=== PATIENT | male | born 1975 | race Caucasian/White ===

== ENCOUNTER 2017-01-18 00:47 | Inpatient (IN) | payer OTHER ==
[2017-01-18] VITALS (7 sets, daily range): BP systolic 103–109; BP diastolic 58–69; PULSE 59–74; RESP 18–19; TEMP 98; Ht 177.8 cm; Wt 72.4 kg
[~2017-01-18] VITALS: Ht 177.8 cm; Wt 72.4 kg
[2017-01-18] MEDS ORDERED: NITROGLYCERIN 2% 1 GM OINT PKT TD STA (00:52)
[2017-01-18] MEDS ORDERED: morphine 4 MG/ML VIAL IV STA (00:52)
[2017-01-18] MEDS ORDERED: ONDANSETRON 4 MG INJ IV STA (00:52)
[2017-01-18 01:11] LABS: BASOPHIL # 0.1 10^3/ul (0.0-0.1); BASOPHILS % 0.7 % (0.0-2.0); EOSINOPHILS # 0.3 10^3/ul (0.0-0.5); EOSINOPHILS % 3.5 % (0.0-7.0); HEMATOCRIT 45.6 % (42.0-52.0); HEMOGLOBIN 15.2 g/dl (14.0-18.0); LYMPHOCYTES # 2.4 10^3/ul (0.8-2.9); LYMPHOCYTES % 31.8 % (15.0-51.0); MEAN CORPUSCULAR HEMOGLOBIN 28.5 pg (29.0-33.0); MEAN CORPUSCULAR HGB CONC 33.3 g/dl (32.0-37.0); MEAN CORPUSCULAR VOLUME 85.6 fl (82.0-101.0); MEAN PLATELET VOLUME 10.9 fl (7.4-10.4); MONOCYTE # 0.8 10^3/ul (0.3-0.9); MONOCYTES % 10.4 % (0.0-11.0); NEUTROPHILS % 53.2 % (39.0-77.0); PLATELET COUNT 203 10^3/UL (140-415); RED BLOOD COUNT 5.33 10^6/ul (4.70-6.10); RED CELL DISTRIBUTION WIDTH 12.7 % (11.5-14.5); WHITE BLOOD COUNT 7.4 10^3/ul (4.8-10.8)
[2017-01-18 01:28] LABS: ALANINE AMINOTRANSFERASE 42 IU/L (13-69); ALBUMIN 4.5 g/dl (3.3-4.9); ALBUMIN/GLOBULIN RATIO 1.32; ALKALINE PHOSPHATASE 100 IU/L (42-121); ANION GAP 19 (8-16); ASPARTATE AMINO TRANSFERASE 28 IU/L (15-46); BILIRUBIN,INDIRECT 0.2 mg/dl (0-1.1); BILIRUBIN,TOTAL 0.2 mg/dl (0.2-1.3); BLOOD UREA NITROGEN 21 mg/dl (7-20); CALCIUM 9.7 mg/dl (8.4-10.2); CARBON DIOXIDE 29 mmol/L (21-31); CHLORIDE 99 mmol/L (97-110); CREATININE 0.99 mg/dl (0.61-1.24); GLUCOSE 108 mg/dl (70-220); POTASSIUM 3.7 mmol/L (3.5-5.1); SODIUM 143 mmol/L (135-144); TOTAL PROTEIN 7.9 g/dl (6.1-8.1)
[2017-01-18 01:39] LABS: B-TYPE NATRIURETIC PEPTIDE 55 PG/ML (0-125); TROPONIN-I < 0.012 ng/ml (0.00-0.12)
--- NOTE | 2017-01-18 01:53 | RADRPT ---
PROCEDURE: XR Chest. CLINICAL INDICATION: Chest pain. TECHNIQUE: Single frontal view of the chest. COMPARISON: None. FINDINGS: The cardiomediastinal silhouette is within normal limits. The lungs are clear. No signs of pleural f luid or pneumothorax are seen. The osseous structures and soft tissues are unremarkable. IMPRESSION: No evidence for active cardiopulmonary disease. RPTAT: [facility] Physician Joy Date Time Electronically viewed and signed by Physician Joy on 01/18/2017 01:53 RS/
[2017-01-18] MEDS ORDERED: TRAZ100T15 PO (03:01)
[2017-01-18] MEDS ORDERED: MULTI PO (03:01)
--- NOTE | 2017-01-18 03:43 | ERA ---
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 Field EKG showed ST segment elevation FL. Upon arrival EKG with EKG was reviewed and deemed not to be a STEMI. Repeat EKG here showed normal sinus rhythm. Chest pain is sharp substernal nonexertional positional no exacerbating or alleviating factors. Given aspirin and nitroglycerin on arrival. Mild relief with above medications. Family history positive for hypercholesterolemia otherwise negative. ROS All systems reviewed and are negative except as per history of present illness. Medications Home Meds Reported Medications Multivitamins* (Theragran*) 1 Tab Tab, 1 TAB PO DAILY, TAB 01/18/17 Trazodone Hcl* (Trazodone Hcl*) 100 Mg Tablet, 100 MG PO QHS, #30 TAB 01/18/17 Allergies Allergies: Coded Allergies: No Known Allergy (Unverified , 01/18/17) PMhx/Soc Medical and Surgical Hx: pt denies Surgical Hx Hx Miscellaneous Medical Probl: No (insomia- work related) Hx Alcohol Use: No Hx Substance Use: No Hx Tobacco Use: No Smoking Status: Never smoker Physical Exam Vitals Vital Signs Date Time Temp Pulse Resp B/P Pulse Ox O2 Delivery O2 Flow Rate FiO2 01/18/17 02:38 97.1 66 18 129/81 100 Room Air 01/18/17 00:49 97.1 63 18 134/74 100 Physical Exam Const: [] Head: Atraumatic Eyes: Normal Conjunctiva ENT: Normal External Ears, Nose and Mouth. Neck: Full range of motion..~ No meningismus. Resp: Clear to auscultation bilaterally Cardio: Regular rate and rhythm, no murmurs Abd: Soft, non tender, non distended. Normal bowel sounds Skin: No petechiae or rashes Back: No midline or flank tenderness Ext: No cyanosis, or edema Neur: Awake and alert Psych: Normal Mood and Affect Result Diagram: 01/18/17 0045 01/18/17 0045 Results 24 hrs Laboratory Tests Test 01/18/17 00:45 White Blood Count 7.410^3/ul Red Blood Count 5.3310^6/ul Hemoglobin 15.2g/dl Hematocrit 45.6% Mean Corpuscular Volume 85.6fl Mean Corpuscular Hemoglobin 28.5pg Mean Corpuscular Hemoglobin Concent 33.3g/dl Red Cell Distribution Width 12.7% Platelet Count 52254^3/UL Mean Platelet Volume 10.9fl Neutrophils % 53.2% Lymphocytes % 31.8% Monocytes % 10.4% Eosinophils % 3.5% Basophils % 0.7% Nucleated Red Blood Cells % 0.0/100WBC Neutrophils # (Manual) 4.010^3/ul Lymphocytes # 2.410^3/ul Monocytes # 0.810^3/ul Eosinophils # 0.310^3/ul Basophils # 0.110^3/ul Nucleated Red Blood Cells # 0.010^3/ul Sodium Level 143mmol/L Potassium Level 3.7mmol/L Chloride Level 99mmol/L Carbon Dioxide Level 29mmol/L Anion Gap 19 Blood Urea Nitrogen 21mg/dl Creatinine 0.99mg/dl Glucose Level 108mg/dl Calcium Level 9.7mg/dl Total Bilirubin 0.2mg/dl Direct Bilirubin 0.00mg/dl Indirect Bilirubin 0.2mg/dl Aspartate Amino Transf (AST/SGOT) 28IU/L Alanine Aminotransferase (ALT/SGPT) 42IU/L Alkaline Phosphatase 100IU/L Troponin I < 0.012ng/ml B-Type Natriuretic Peptide 55PG/ML Total Protein 7.9g/dl Albumin 4.5g/dl Globulin 3.40g/dl Albumin/Globulin Ratio 1.32 Current Medications Medications (Trade) Dose Ordered Sig/Jb Route PRN Reason Start Time Stop Time Status Last Admin Dose Admin Nitroglycerin (Nitroglycerin 2% Oint) 1 inch ONCE STAT TD 01/18/17 00:52 01/18/17 00:53 DC 01/18/17 01:21 Morphine Sulfate (morphine) 4 mg ONCE STAT IV 01/18/17 00:52 01/18/17 00:53 DC 01/18/17 01:20 Ondansetron HCl (Zofran Inj) 4 mg ONCE STAT IV 01/18/17 00:52 01/18/17 00:53 DC 01/18/17 01:20 Procedures/[facility] EKG: Rate/Rhythm: Normal Sinus Rhythm QRS, ST, T-waves: No changes consistent w/ acute ischemia Impression: No evidence of ischemia or arrhythmia Chest X-ray 1V Interpreted by me: Soft Tissue: No acute abnormalities Bones: No acute abnormalities Mediastinum/Cardiac Silhouette/Lungs: No acute abnormalities Patient's symptoms are concerning for cardiac cause will require inpatient workup and continuous monitoring. Further w/u for ischemia, arrhythmia, PE or dissection will be deferred to the inpatient team. Accepting Care Team: Current data and ongoing care discussed. Time: 3:30 AM Primary Provider: Hospitalist Consulting: [XOXOXO] Outstanding Data: none Departure Diagnosis: Primary Impression: Chest pain Qualified Code: I20.0 - Unstable angina pectoris Condition: Serious CHELY FUNEZ Jan 18, 2017 03:43
[2017-01-18] MEDS ORDERED: morphine 2 MG INJ IV ONE (08:30)
[2017-01-18] MEDS ORDERED: ALBUTEROL/IPRATROPIUM (NEB) 3 ML AMP HHN PRN (09:00)
[2017-01-18] MEDS ORDERED: morphine 2 MG INJ IV PRN (09:00)
[2017-01-18] MEDS ORDERED: NACL 0.9% 3 ML SYG IV SCH (09:00)
[2017-01-18] MEDS ORDERED: ONDANSETRON 4 MG INJ IV PRN (09:00)
[2017-01-18] MEDS ORDERED: NITROGLYCERIN (SL) 0.4 MG TAB SL PRN (09:00)
[2017-01-18] MEDS ORDERED: ACETAMINOPHEN 325 MG TAB PO PRN (09:00)
[2017-01-18] MEDS: ENOXAPARIN 40 MG/0.4 ML SYG SC SCH (09:44)
[2017-01-18] MEDS: ASPIRIN 81 MG TAB PO SCH (09:44)
[2017-01-18 10:05] LABS: CREATINE KINASE 59 IU/L (23-200)
[2017-01-18 10:19] LABS: CK-MB 0.36 ng/ml (0.0-2.4); TROPONIN-I < 0.012 ng/ml (0.00-0.12)
--- NOTE | 2017-01-18 12:02 | CONS ---
DATE OF ADMISSION: 01/18/2017 DATE OF CONSULTATION: 01/18/2017 REASON FOR CONSULTATION: Precordial chest pain. 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 The patient stated that he had an episode which felt like indigestion yesterday, but while he was at the fire station. The patient said that he has not had symptoms like this before. He said that he had access to an EKG machine. He did an EKG and the EKG showed that the patient has "ST elevation myocardial infarction". When I asked the patient about his EKG and if he read it himself or he just interpreted the interpretation of the rhythm strip on the top, he said he looked at the EKG and it looked like it had some depressions. The patient was transferred to the emergency room for further medical evaluation and management. I reviewed the patient's EKG carefully and it appears that he had some nonspecific STT changes with sinus bradycardia in the range of 50s. This is more consistent with normal EKG versus pericarditis; however, at the present time given the patient's high risk occupation and some risk factors such as recent stress, I would consider restratification with a stress test while the patient is here in the hospital. The patient agrees to proceed with stress test as indicated. PAST MEDICAL HISTORY: The patient reports history of anxiety due to recent stressors in his family situation but no other reports. MEDICATION: Trazodone. FAMILY HISTORY: Negative for sudden cardiac or premature coronary artery disease. ALLERGIES: NO KNOWN DRUG ALLERGIES. SOCIAL HISTORY: The patient never smoked, does not use any drugs. The patient is and he has some recent issues with his ex , as well as his ex girlfriend who carries his 5 month old child. REVIEW OF SYSTEMS: GENERAL: No fevers, no chills. RESPIRATORY: No shortness of breath. GASTROINTESTINAL: No nausea or vomiting. Indigestion as described. CARDIOVASCULAR: Chest pain as above. GENITOURINARY: No hematuria. NEUROLOGIC: Cooperative. PSYCHIATRIC: History of anxiety. PHYSICAL EXAMINATION: VITAL SIGNS: Bradycardia in the 50s, blood pressure 121/65. GENERAL APPEARANCE: A gentleman in no acute distress, alert and oriented x3. NECK: Supple, JVD 17 cm. There is no lymphadenopathy, no thyromegaly. HEART: Regular, soft 1/6 systolic murmur. PMI is not displaced. There is no S3 or S4. LUNGS: Clear at the bases. ABDOMEN: Distended, bowel sounds are present. There is no hepatosplenomegaly. GENITOURINARY: Grossly intact. EXTREMITIES: No cyanosis, clubbing or edema. SKIN: No bruising. NEUROLOGIC: He is able to move his extremities. LABORATORY: Troponin is negative at 0.01. IMPRESSION AND PLAN: 1. Chest pain. The patient's precordial chest pain is not consistent with acute ischemic event; however, anxiety versus gastroesophageal reflux disease for differential. Because the patient has high risk it is reasonable to proceed with stress test for restratification further. The patient will also have a 2-D echo to rule out pericardial effusion. 2. Abnormal EKG. The patient with bradycardia. 3. Anxiety. The patient takes Trazodone at home to sleep. Will continue to monitor now. 4. Abnormal EKG with some nonspecific STT changes. I would like to thank Rodri Lopez MD for referring this patient for evaluation. Dictated By: Phill Galarza MD /alex/belinda /Document#: [id number]
--- NOTE | 2017-01-18 15:50 | PN ---
Date/Time of Note Date/Time of Note DATE: 01/18/17 TIME: 15:50 Assessment/Plan VTE Prophylaxis VTE Prophylaxis Intervention: SCD's Lines/Catheters IV Catheter Type (from Nrsg): Saline Lock Assessment/Plan Chief Complaint/Hosp Course Assessment and plan 1. Chest pain. Employment Adjudicator following. Follow-up on 2D echocardiogram. Tentative plan for stress test. Will follow up. 2. Abnormal EKG. Monitor on telemetry. 3. Anxiety. Continue anxiolytics as needed Disposition and plan: Tentative plan for stress test. Will follow up Discussed plan of care with Problems: Subjective 24 Hr Interval Summary Free Text/Dictation No reports of chest pain at this time. Exam/Review of Systems Vital Signs Vitals Vital Signs Date Time Temp Pulse Resp B/P Pulse Ox O2 Delivery O2 Flow Rate FiO2 01/18/17 15:01 74 01/18/17 14:48 97.6 18 103/58 96 01/18/17 14:23 Nasal Cannula 2.0 Exam Constitutional: alert, oriented Psych: nl mood/affect Head: normocephalic Eyes: nl conjunctiva Neck: supple, No jvd Respiratory: clear to auscultation, normal air movement Cardiovascular: regular rate and rhythm Gastrointestinal: non-tender, soft Musculoskeletal: nl extremities to inspection Neurological: PERFORMANCE SPECIALIST II-XII intact, nl mental status, nl speech Results Result Diagram: 01/18/17 0045 01/18/175 Results 24 hrs Laboratory Tests Test 01/18/17 00:45 01/18/17 09:00 White Blood Count 7.4 Red Blood Count 5.33 Hemoglobin 15.2 Hematocrit 45.6 Mean Corpuscular Volume 85.6 Mean Corpuscular Hemoglobin 28.5 L Mean Corpuscular Hemoglobin Concent 33.3 Red Cell Distribution Width 12.7 Platelet Count 203 Mean Platelet Volume 10.9 H Neutrophils % 53.2 Lymphocytes % 31.8 Monocytes % 10.4 Eosinophils % 3.5 Basophils % 0.7 Nucleated Red Blood Cells % 0.0 Neutrophils # (Manual) 4.0 Lymphocytes # 2.4 Monocytes # 0.8 Eosinophils # 0.3 Basophils # 0.1 Nucleated Red Blood Cells # 0.0 Sodium Level 143 Potassium Level 3.7 Chloride Level 99 Carbon Dioxide Level 29 Anion Gap 19 H Blood Urea Nitrogen 21 H Creatinine 0.99 Glucose Level 108 Calcium Level 9.7 Total Bilirubin 0.2 Direct Bilirubin 0.00 Indirect Bilirubin 0.2 Aspartate Amino Transf (AST/SGOT) 28 Alanine Aminotransferase (ALT/SGPT) 42 Alkaline Phosphatase 100 Troponin I < 0.012 < 0.012 B-Type Natriuretic Peptide 55 Total Protein 7.9 Albumin 4.5 Globulin 3.40 H Albumin/Globulin Ratio 1.32 Creatine Kinase 59 Creatine Kinase Index 0.6 Creatinine Kinase MB (Mass) 0.36 Medications Medications Current Medications Ondansetron HCl (Zofran Inj) 4 mg Q6H PRN IV NAUSEA AND/OR VOMITING; Start at 09:00 Aspirin (Aspirin) 81 mg DAILY PO Last administered on 01/18/17 09:44; Admin Dose 81 MG; Start 01/18/17 at 09:00 Nitroglycerin (Nitroglycerin (Sl Tab) 0.4 Mg) 1 tab Q5M PRN SL CHEST PAIN Last administered on 01/18/17 12:08; Admin Dose 1 TAB; Start 01/18/17 at 09:00 Acetaminophen (Tylenol Tab) 650 mg Q6H PRN PO PAIN LEVEL 1-3 OR FEVER Last administered on 01/18/17 12:33; Admin Dose 650 MG; Start 01/18/17 at 09:00 Morphine Sulfate (morphine) 2 mg Q4H PRN IV PAIN LEVEL 7-10; Start 01/18/17 at 09:00 Enoxaparin Sodium (Lovenox) 40 mg DAILY SC Last administered on 01/18/17 09:44 ; Admin Dose 40 MG; Start 01/18/17 at 09:00 RADHA MORILLO Jan 18, 2017 15:50
[2017-01-18 16:09] LABS: CREATINE KINASE 68 IU/L (23-200)
[2017-01-18 16:22] LABS: CK-MB 0.28 ng/ml (0.0-2.4); TROPONIN-I < 0.012 ng/ml (0.00-0.12)
[2017-01-19] VITALS (13 sets, daily range): BP systolic 103–116; BP diastolic 58–74; PULSE 45–76; RESP 18–20
[2017-01-19 07:16] LABS: BASOPHILS % 0.6 % (0.0-2.0); EOSINOPHILS # 0.2 10^3/ul (0.0-0.5); EOSINOPHILS % 3.6 % (0.0-7.0); HEMATOCRIT 48.4 % (42.0-52.0); LYMPHOCYTES # 1.7 10^3/ul (0.8-2.9); LYMPHOCYTES % 25.2 % (15.0-51.0); MEAN CORPUSCULAR HEMOGLOBIN 28.4 pg (29.0-33.0); MEAN CORPUSCULAR HGB CONC 33.1 g/dl (32.0-37.0); MEAN PLATELET VOLUME 10.8 fl (7.4-10.4); MONOCYTE # 0.6 10^3/ul (0.3-0.9); MONOCYTES % 9.1 % (0.0-11.0); NEUTROPHILS % 60.9 % (39.0-77.0); PLATELET COUNT 195 10^3/UL (140-415); RED BLOOD COUNT 5.63 10^6/ul (4.70-6.10); RED CELL DISTRIBUTION WIDTH 12.6 % (11.5-14.5); WHITE BLOOD COUNT 6.6 10^3/ul (4.8-10.8)
[2017-01-19 07:45] LABS: ALBUMIN/GLOBULIN RATIO 1.25; BILIRUBIN,INDIRECT 0.4 mg/dl (0-1.1); BILIRUBIN,TOTAL 0.4 mg/dl (0.2-1.3); CALCIUM 8.9 mg/dl (8.4-10.2); CHOL/HDL RATIO 2.5 RATIO; CREATININE 1.03 mg/dl (0.61-1.24); POTASSIUM 4.4 mmol/L (3.5-5.1); TOTAL PROTEIN 7.2 g/dl (6.1-8.1)
[2017-01-19 08:14] LABS: THYROID STIMULATING HORMONE 0.941 MIU/L (0.465-4.680)
[2017-01-19] MEDS: ENOXAPARIN 40 MG/0.4 ML SYG SC SCH (09:00)
[2017-01-19] MEDS: ASPIRIN 81 MG TAB PO SCH (09:00)
--- NOTE | 2017-01-19 13:37 | PDOCDIS ---
Discharge Instructions DIAGNOSIS Discharge Diagnosis 1. Chest pain, non-cardiac (atypical) 2. reported Abnormal EKG. CONDITION Patient Condition: Stable HOME CARE INSTRUCTIONS: Diet Instructions: Regular FOLLOW UP/APPOINTMENTS Follow-up Plan 1. Follow up with your primary care provider in one week OTHER ORDERS: Other Orders: For further questions concerning cardiac care, please contact: Dr. Gopal Parikh Office Address [address] [place] [id number] Office RADHA MORILLO Jan 19, 2017 13:37
--- NOTE | 2017-01-19 14:40 | CONS ---
Date/Time of Note Date/Time of Note DATE: 01/19/17 TIME: 14:34 Assessment/Plan Assessment/Plan Chief Complaint/Hosp Course IMP 1.Chest pain-negative trop x 3 2. abnl ecg 3.Dyslipidemia Recc: -Tele -serial ecg's -will f/u echo -contnue asa -lexiscan stress today and if negatve then ok for d/c from cardiac standpoint Problems: Consultation Date/Type/Reason Admit Date/Time Jan 18, 2017 at 03:42 Initial Consult Date 01/18/17 Type of Consultation: cardiology Reason for Consultation chest pain Referring Provider: RADHA DHILLON Exam/Review of Systems Vital Signs Vitals Vital Signs Date Time Temp Pulse Resp B/P Pulse Ox O2 Delivery O2 Flow Rate FiO2 01/19/17 12:20 68 01/19/17 12:00 98.2 18 108/67 98 01/18/17 14:23 Nasal Cannula 2.0 Intake and Output 01/18/17 01/18/17 01/19/17 15:00 23:00 07:00 Intake Total 240 ml 150 ml Balance 240 ml 150 ml Exam Review of Systems: CONSTITUTIONAL: No fevers, chills. PULMONARY: No sob CARDIOVASCULAR: No chest pain/palpitations GASTROINTESTINAL: No nausea/vomiting. GENITOURINARY: No hematuria/dysuria. MUSCULOSKELETAL: No myagias/arthalgias. PSYCHIATRIC: The patient denies depression. NEUROLOGIC: No weakness Constitutional: alert Psych: no complaints Head: normocephalic ENMT: mucosa pink and moist Neck: jvd (8-9cm water), supple Respiratory: diminished breath sounds Cardiovascular: regular rate and rhythm Gastrointestinal: non-tender, soft Musculoskeletal: muscle tone (normal) Extremities: edema (none) Neurological: other (No focal deficits) Results Result Diagram: 01/19/17 0654 01/19/17 0654 Results 24 hrs Laboratory Tests Test 01/18/17 15:00 01/19/17 06:54 Creatine Kinase 68 Creatine Kinase Index 0.4 Creatinine Kinase MB (Mass) 0.28 Troponin I < 0.012 White Blood Count 6.6 Red Blood Count 5.63 Hemoglobin 16.0 Hematocrit 48.4 Mean Corpuscular Volume 86.0 Mean Corpuscular Hemoglobin 28.4 L Mean Corpuscular Hemoglobin Concent 33.1 Red Cell Distribution Width 12.6 Platelet Count 195 Mean Platelet Volume 10.8 H Neutrophils % 60.9 Lymphocytes % 25.2 Monocytes % 9.1 Eosinophils % 3.6 Basophils % 0.6 Nucleated Red Blood Cells % 0.0 Neutrophils # (Manual) 4.0 Lymphocytes # 1.7 Monocytes # 0.6 Eosinophils # 0.2 Basophils # 0.0 Nucleated Red Blood Cells # 0.0 Sodium Level 141 Potassium Level 4.4 Chloride Level 100 Carbon Dioxide Level 30 Anion Gap 15 Blood Urea Nitrogen 18 Creatinine 1.03 Glucose Level 92 Hemoglobin A1c 5.2 Calcium Level 8.9 Total Bilirubin 0.4 Direct Bilirubin 0.00 Indirect Bilirubin 0.4 Aspartate Amino Transf (AST/SGOT) 30 Alanine Aminotransferase (ALT/SGPT) 48 Alkaline Phosphatase 85 Total Protein 7.2 Albumin 4.0 Globulin 3.20 Albumin/Globulin Ratio 1.25 Triglycerides Level 69 Cholesterol Level 180 LDL Cholesterol, Calculated 94 HDL Cholesterol 72 H Cholesterol/HDL Ratio 2.5 Thyroid Stimulating Hormone (TSH) 0.941 Medications Medications Current Medications Ondansetron HCl (Zofran Inj) 4 mg Q6H PRN IV NAUSEA AND/OR VOMITING; Start at 09:00 Aspirin (Aspirin) 81 mg DAILY PO Last administered on 01/18/17 09:44; Admin Dose 81 MG; Start 01/18/17 at 09:00 Nitroglycerin (Nitroglycerin (Sl Tab) 0.4 Mg) 1 tab Q5M PRN SL CHEST PAIN Last administered on 01/18/17 12:08; Admin Dose 1 TAB; Start 01/18/17 at 09:00 Acetaminophen (Tylenol Tab) 650 mg Q6H PRN PO PAIN LEVEL 1-3 OR FEVER Last administered on 01/18/17 12:33; Admin Dose 650 MG; Start 01/18/17 at 09:00 Morphine Sulfate (morphine) 2 mg Q4H PRN IV PAIN LEVEL 7-10 Last administered on 01/18/17 18:55; Admin Dose 2 MG; Start 01/18/17 at 09:00 Enoxaparin Sodium (Lovenox) 40 mg DAILY SC Last administered on 01/18/17 09:44 ; Admin Dose 40 MG; Start 01/18/17 at 09:00 STEW GILBERT Jan 19, 2017 14:40
--- NOTE | 2017-01-19 18:10 | PN ---
Date/Time of Note Date/Time of Note DATE: 01/19/17 TIME: 18:08 Assessment/Plan VTE Prophylaxis VTE Prophylaxis Intervention: SCD's Lines/Catheters IV Catheter Type (from Nrsg): Saline Lock Assessment/Plan Chief Complaint/Hosp Course Assessment and plan 1. Chest pain. Design Tech following. patient had stress test today. still awaiting results . 2. Abnormal EKG. Monitor on telemetry. Stable at present 3. suspect Anxiety. Continue anxiolytics as needed Disposition and plan: awaiting stress test results. continue telemetry monitoring. anticipate discharge within the next 24 hours if medically stable and cleared by consultants Discussed plan of care with Problems: Subjective 24 Hr Interval Summary Free Text/Dictation denies any chest pain or shortness of breath. appears in good spirits Exam/Review of Systems Vital Signs Vitals Vital Signs Date Time Temp Pulse Resp B/P Pulse Ox O2 Delivery O2 Flow Rate FiO2 01/19/17 16:22 75 01/19/17 16:17 98.4 18 116/74 98 01/18/17 14:23 Nasal Cannula 2.0 Intake and Output 01/18/17 01/18/17 01/19/17 15:00 23:00 07:00 Intake Total 240 ml 150 ml Balance 240 ml 150 ml Exam Constitutional: alert, oriented Psych: nl mood/affect Head: normocephalic Eyes: nl conjunctiva Neck: non-tender Respiratory: clear to auscultation, normal air movement Cardiovascular: regular rate and rhythm Gastrointestinal: non-tender, soft Musculoskeletal: nl extremities to inspection Extremities: normal pulses Neurological: MOLDER BENCH II-XII intact, nl mental status, nl speech Skin: nl turgor Results Result Diagram: 01/19/17 0654 01/19/17 0654 Results 24 hrs Laboratory Tests Test 01/19/17 06:54 White Blood Count 6.6 Red Blood Count 5.63 Hemoglobin 16.0 Hematocrit 48.4 Mean Corpuscular Volume 86.0 Mean Corpuscular Hemoglobin 28.4 L Mean Corpuscular Hemoglobin Concent 33.1 Red Cell Distribution Width 12.6 Platelet Count 195 Mean Platelet Volume 10.8 H Neutrophils % 60.9 Lymphocytes % 25.2 Monocytes % 9.1 Eosinophils % 3.6 Basophils % 0.6 Nucleated Red Blood Cells % 0.0 Neutrophils # (Manual) 4.0 Lymphocytes # 1.7 Monocytes # 0.6 Eosinophils # 0.2 Basophils # 0.0 Nucleated Red Blood Cells # 0.0 Sodium Level 141 Potassium Level 4.4 Chloride Level 100 Carbon Dioxide Level 30 Anion Gap 15 Blood Urea Nitrogen 18 Creatinine 1.03 Glucose Level 92 Hemoglobin A1c 5.2 Calcium Level 8.9 Total Bilirubin 0.4 Direct Bilirubin 0.00 Indirect Bilirubin 0.4 Aspartate Amino Transf (AST/SGOT) 30 Alanine Aminotransferase (ALT/SGPT) 48 Alkaline Phosphatase 85 Total Protein 7.2 Albumin 4.0 Globulin 3.20 Albumin/Globulin Ratio 1.25 Triglycerides Level 69 Cholesterol Level 180 LDL Cholesterol, Calculated 94 HDL Cholesterol 72 H Cholesterol/HDL Ratio 2.5 Thyroid Stimulating Hormone (TSH) 0.941 Medications Medications Current Medications Ondansetron HCl (Zofran Inj) 4 mg Q6H PRN IV NAUSEA AND/OR VOMITING; Start at 09:00 Aspirin (Aspirin) 81 mg DAILY PO Last administered on 01/18/17 09:44; Admin Dose 81 MG; Start 01/18/17 at 09:00 Nitroglycerin (Nitroglycerin (Sl Tab) 0.4 Mg) 1 tab Q5M PRN SL CHEST PAIN Last administered on 01/18/17 12:08; Admin Dose 1 TAB; Start 01/18/17 at 09:00 Acetaminophen (Tylenol Tab) 650 mg Q6H PRN PO PAIN LEVEL 1-3 OR FEVER Last administered on 01/18/17 12:33; Admin Dose 650 MG; Start 01/18/17 at 09:00 Morphine Sulfate (morphine) 2 mg Q4H PRN IV PAIN LEVEL 7-10 Last administered on 01/18/17 18:55; Admin Dose 2 MG; Start 01/18/17 at 09:00 Enoxaparin Sodium (Lovenox) 40 mg DAILY SC Last administered on 01/18/17 09:44 ; Admin Dose 40 MG; Start 01/18/17 at 09:00 RADHA MORILLO Jan 19, 2017 18:10
--- NOTE | 2017-01-19 18:27 | RADRPT ---
Echocardiogram Report Patient Name: KENDRICK PATE Gender: Male Date: 1975 Study Date: 18-Jan-2017 Leader Tier: Klaudia [facility] Location: [facility] Ref. Physician: CHELY PURVIS Quality: Technically Difficult Study Procedures: Transthoracic echocardiogram with complete 2D, M-Mode, and doppler examination. Indications: Chest Pain. 2D/M Mode Doppler Measurement Value Normal Ranges Measurement Value Normal Ranges LVIDd 2D 4.6 3.5 - 5.6 cm AV Peak Kevin 1.1 m/sec LVIDs 2D 3.0 2.1 - 4.1 cm AV Peak PG 5.0 mmHg FS 2D 35.5 % LVOT Peak Kevin 1.0 m/sec LVPWd 2D 1.0 0.6 - 1.1 cm LVOT Peak PG 4.0 mmHg IVSd 2D 1.0 0.6 - 1.1 cm MV E Peak Kevin 0.9 m/sec IVS/LVPW 2D 1.0 MV A Peak Kevin 0.5 m/sec AoR Diam 2D 2.2 2.0 - 3.7 cm MV E/A 1.9 LA/Ao 2D 1 0 - 1 MV Decel Time 187 msec EDV 2D 98.6 cm3 MV E/A 1.9 ESV 2D 26.5 cm3 TR Peak Kevin 2.5 m/sec LA Dimen 2D 2.9 2.3 - 4.0 cm TR Peak PG 24.0 mmHg RVSP 32.0 mmHg Findings Left Ventricle: Normal left ventricular systolic function. Normal left ventricular cavity size. Normal left ventricular wall thickness. Ejection fraction is visually estimated at 60 %. Abnormal Diastolic Function. Right Ventricle: Normal right ventricular size. Normal right ventricular systolic function. Left Atrium: The left atrium is normal in size. Right Atrium: The right atrium is normal in size. Mitral Valve: Mitral valve leaflets appear mildly thickened. Mild mitral annular calcification. Trace mitral regurgitation. Aortic Valve: Normal appearance of the aortic valve. No significant aortic stenosis or insufficiency. Tricuspid Valve: Normal appearance of the tricuspid valve. Estimated peak PA systolic pressure 32 mmHg. There is mild tricuspid regurgitation. Pulmonic Valve: Pulmonic valve not well visualized. There is trace pulmonic regurgitation. Pericardium: Normal pericardium with no significant pericardial effusion. Aorta: Normal aortic root. IVC: Normal size and poor respiratory collapse consistent with elevated right atrial pressure. Conclusions 1.Normal left ventricular systolic function. Normal left ventricular cavity size. Normal left ventricular wall thickness. Ejection fraction is visually estimated at 60 %. Abnormal Diastolic Function. 2.Mitral valve leaflets appear mildly thickened. Mild mitral annular calcification. Trace mitral regurgitation. 3.Normal appearance of the tricuspid valve. Estimated peak PA systolic pressure 32 mmHg. There is mild tricuspid regurgitation. 4.Pulmonic valve not well visualized. There is trace pulmonic regurgitation. Electronically Signed By: oGpal Parikh 19-Jan-2017 18:27:11 -0700 Patient Name: KENDRICK PATE Study Date: 18-Jan-2017 [id number]
--- NOTE | 2017-01-19 19:03 | RADRPT ---
PROCEDURE: Lexiscan myocardial perfusion study CLINICAL INDICATION: 41 -year-old patient complaining of chest pain. TECHNIQUE: Lexiscan 0.4 mg intravenously separate acquisition gated myocardial perfusion SPECT usi ng Tc 99m Myoview mCi intravenously at stress and Tc-99m Myoview, mCi intravenously at rest was pe rformed using the rest/stress sequence. Poststress Myoview SPECT images were obtained in the supine position. COMPARISON: No prior studies. FINDINGS: Perfusion images reveal mild nonreversible perfusion abnormality in the mid to basal inferoseptal wa ll, likely related to soft tissue attenuation. Lexiscan post stress gated SPECT images demonstrate no wall motion abnormalities. IMPRESSION: 1. No evidence of stress-induced ischemia. 2. No wall motion abnormalities. 3. The left ventricle ejection fraction at stress is 53%. RPTAT: HH .Magdalena Burgos MD, Date Time Electronically viewed and signed by .Magdalena Burgos MD, on 01/20/2017 09:07 .L/
[2017-01-19] MEDS: SOD CHLORIDE 0.9% 1,000 ML IV SCH (21:15)
[2017-01-20 00:04] VITALS: BP 100/58; PULSE 61; RESP 19
[2017-01-20 03:54] VITALS: BP 99/59; RESP 20
[2017-01-20 04:06] VITALS: PULSE 60
[2017-01-20] MEDS: SOD CHLORIDE 0.9% 1,000 ML IV SCH (06:15)
--- NOTE | 2017-01-20 07:02 | CARRPT ---
DATE OF PROCEDURE: 01/19/2017 PROCEDURE: Treadmill Cardiolite Stress Test REASON FOR STRESS TESTING: Chest pain, assess for ischemia. BASELINE VITAL SIGNS: Electrocardiogram: Blood pressure of 124/71. Electrocardiogram: Pulse of 59, reveals sinus bradycardia, rate of 59 with normal axis and intervals, lateral T- wave inversion isolated to lead AVL. PROCEDURE: Patient was brought to the cardiology department and placed on continuous telemetry monitoring and blood pressure cuff cycling every 3 minutes. Patient at this time had the EKG leads placed on him and exercised according to John protocol, completing 4 stages with good exercise tolerance. Maximal achieved blood pressure during the test: 168/88. Maximum heart rate during the test of 177. Patient's test was stopped due to general fatigue. ECG FINDINGS: At peak exercise, patient's EKG was somewhat degraded by artifacts but revealed no significant ST or T-wave changes that would be diagnostic for cardiac ischemia. Rare PACs. No PVCs. SYMPTOMS: Patient had no complaints of chest pain. Mild shortness of breath at the completion of the John protocol. IMPRESSION: 1. After exercising for a total of 12 minutes and completing 4 stages of John protocol with a good exercise tolerance and a peak double product of greater than 29,000, patient did not develop ST or T-wave changes that are diagnostic of cardiac ischemia. 2. Nuclear images to follow in separate dictation. Dictated By: Gopal Parikh MD /alex/rowdy /Document#: [id number] CC: Rodri Mcguire MD;*End*
[2017-01-20 07:49] VITALS: BP 101/56; RESP 18
[2017-01-20 08:35] VITALS: PULSE 53
[2017-01-20] MEDS: ENOXAPARIN 40 MG/0.4 ML SYG SC SCH (09:00)
[2017-01-20] MEDS: ASPIRIN 81 MG TAB PO SCH (09:53)
--- NOTE | 2017-01-20 11:26 | DS ---
Date/Time of Note Date/Time of Note DATE: 01/20/17 TIME: 11:25 Discharge Summary Admission/Discharge Info Admit Date/Time Jan 18, 2017 at 03:42 Discharge Date/Time Discharge Diagnosis 1. Chest pain, non-cardiac (atypical) 2. reported Abnormal EKG. Patient Condition: Stable Hospital Course This is a 41-year-old male with no reported past medical history came to [facility] due to reports of chest pain. 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 He did an EKG on the field and reportedly it showed ST segment elevation. He came to [facility] he had another EKG and after review it was not deemed to be an ST elevated myocardial infarction. His repeat EKG did show normal sinus rhythm. He did report having some sharp chest pain substernal nonexertional positional and no exacerbating or relieving factors. He did report that he was undergoing some stress at work. Patient did have serial troponins drawn which were all essentially negative. He was seen by bin operator as well and did undergo stress test for which per exam showed no evidence of stress-induced ischemia. He also had echocardiogram with ejection fraction noted at 60%. Chest pain was noncardiac in origin and likely stress- induced. During his course that he did improve. He did report resolution of chest pain. The plan of care was discussed with the patient and patient did verbalizes understanding. On the day of discharge patient was in stable condition Discussed plan of care with Dr. Puente Home Meds Reported Medications Multivitamins* (Theragran*) 1 Tab Tab, 1 TAB PO DAILY, TAB 01/18/17 Trazodone Hcl* (Trazodone Hcl*) 100 Mg Tablet, 100 MG PO QHS, #30 TAB 01/18/17 Follow-up Plan CONDITION Patient Condition: Stable HOME CARE INSTRUCTIONS: Diet Instructions: Regular FOLLOW UP/APPOINTMENTS Follow-up Plan 1. Follow up with your primary care provider in one week OTHER ORDERS: Other Orders: For further questions concerning cardiac care, please contact: Dr. Gopal Parikh Office Address [id number] [place] [address] Office Time spent on discharge: > 30 minutes RADHA MORILLO Jan 20, 2017 11:26
== END 2017-01-20 11:55 | disposition home or self-care (01) | DRG 313 ==
LOC: E/R 00:47 → MS4 03:42
PROVIDERS: ADMIT Internal Medicine; ATTEND Internal Medicine
DX: R07.89 Other chest pain (principal); E78.5 Hyperlipidemia, unspecified; F41.9 Anxiety disorder, unspecified; R94.31 Abnormal electrocardiogram [ECG] [EKG]; G47.09 Other insomnia
CPT/HCPCS: 36415; 71010; 78452; 80053; 80061; 82550; 82553; 83036; 83880; 84443; 84484; 85025; 93005; 93017; 93306; 96372; 96374; 96375; 96376; A9500; A9505; J1650; J2270; J2405; J7030